=== PATIENT | male | born 1980 | race Caucasian/White ===

== ENCOUNTER 2016-09-04 06:50 | Emergency (ER) | payer BC ==
[2016-09-04 07:02] VITALS: BP 150/91; O2SAT 96
[2016-09-04] MEDS ORDERED: TORAdol 30 mg Injection IM ONE (07:15)
[2016-09-04] MEDS ORDERED: Norflex 60 MG/2 ML IM ONE (07:15)
[2016-09-04] MEDS ORDERED: TORAdol 30 mg Injection ONE (07:18)
[2016-09-04] MEDS ORDERED: Norflex 60 MG/2 ML ONE (07:18)
--- NOTE | 2016-09-04 07:21 | ERPHSYRPT ---
- History of Present Illness Time Seen by Provider: 09/04/16 07:05 Source: patient Patient Subjective Stated Complaint: REPORTS WITH CHRONIC LOWER BACK PAIN THAT IS WORSE THAN NORMAL, ONSET A FEW DAYS AGO AND GRADUALLY GETTING WORSE, RADIATING INTO THE HIP AND DOWN THE RIGHT LEG - STATES THAT HE WILL NOT BE ABLE TO SEE PAIN MANAGEMENT FOR A FEW MORE DAYS AND IS LONG OVERDUE FOR A "CAUDAL INJECTION" Triage Nursing Assessment: AMBULATORY TO TREATMENT AREA - WADDLING GAIT WITH POST-OP SHOE ON THE RIGHT FOOT. ALERT/ORIENTED - GRIMMACING AFFECT. SKIN FLUSHED/DRY - NO RASH - INFECTION OF THE RIGHT TOE WITH COPIOUS DRAINAGE, RECEIVING CUBICIN AND "ADVANSE" VIA PICC LINE. RESPS EASY - NON-LABORED. FSBS : 289 Physician History: CC: back pain Hx: 36 y/o male patient of Dr Parker. He has chronic back pain and has had injections and has seen pain specialists. Dr Guevara referred him to pain doctor in [place] and appt is next week. He has worsened pain in low back. He has no inciting injury. No fever or chills. No abd pain. Pain radiates down the right leg. He has DM but did not take his insulin last night. 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 He has no hx of IVIS. He is on cubicin for diabetic foot and is followed by podiatry and changes dressings daily- it is improving and he does not want it changed here. Back Pain Location: lumbar spine Back Pain Radiation: upper legs Severity of Pain-Max: severe Severity of Pain-Current: severe Allergies/Adverse Reactions: No Known Drug Allergies Allergy (Verified 09/04/16 06:54) Home Medications: Insulin Glargine [Lantus Insulin] 50 unit SQ QAM 03/03/13 [History] Insulin Lispro [Humalog] 1 unit SQ UD 03/03/13 [History] Metoprolol Tartrate 50 mg [Lopressor 50 MG] 50 mg PO BID 03/03/13 [History ] Pravastatin Sodium 40 mg PO DAILY 03/03/13 [History] Gabapentin 300 mg PO TID 08/31/13 [History] Lisinopril/Hydrochlorothiazide [Lisinopril-Hctz 20-12.5 mg Tab] 1 tab PO BID [History] Hx Tetanus, Diphtheria Vaccination/Date Given: Yes Hx Influenza Vaccination/Date Given: No Hx Pneumococcal Vaccination/Date Given: No Immunizations Up to Date: Yes - Review of Systems Constitutional: No Fever, No Chills Eyes: No Symptoms Ears, Nose, & Throat: No Symptoms Respiratory: No Cough Cardiac: No Chest Pain Abdominal/Gastrointestinal: No Abdominal Pain Musculoskeletal: Back Pain Skin: Other (diabetic foot ulcer) Neurological: No Focal Weakness, No Headache, No Parasthesia All Other Systems: Reviewed and Negative - Past Medical History Pertinent Past Medical History: Yes Neurological History: Peripheral Neuropathy ENT History: No Pertinent History Cardiac History: High Cholesterol, Hypertension Respiratory History: No Pertinent History Endocrine Medical History: Diabetes Type II Musculoskeletal History: Degenerative Disk Disease GI Medical History: No Pertinent History History: No Pertinent History Psycho-Social History: Depression Male Reproductive Disorders: No Pertinent History Other Medical History: MRSA in wound right foot in 04/2015 - Past Surgical History Past Surgical History: Yes Neuro Surgical History: No Pertinent History Cardiac: No Pertinent History Respiratory: No Pertinent History Gastrointestinal: No Pertinent History Genitourinary: No Pertinent History Musculoskeletal: Other Male Surgical History: No Pertinent History Other Surgical History: surgery on abcess and growth removed on foot RT, 2 toes amputated R foot. AXILLA--ABSCESS SURGERY, lumbar ANTONIA's - Social History Smoking Status: Never smoker Exposure to second hand smoke: No Drug Use: none Patient Lives Alone: No - Nursing Vital Signs Temperature: 98.3 F Pulse Rate: 90 Respiratory Rate: 16 Pain Intensity: 8 - Physical Exam General Appearance: alert, obese Eye Exam: PERRL/EOMI Ears, Nose, Throat Exam: moist mucous membranes Neck Exam: normal inspection, supple Respiratory Exam: normal breath sounds Cardiovascular Exam: regular rate/rhythm Gastrointestinal Exam: soft, No tenderness, No distention Back Exam: normal inspection, other (diffuse discomfort) Extremity Exam: other (dressing on foot) Neurologic Exam: alert, oriented x 3, cooperative, sensation nml, No motor deficits Skin Exam: warm, dry SpO2 Interpretation: normal SpO2: 96 Oxygen Delivery: Room Air - Course Nursing assessment & vital signs reviewed: Yes - Progress Progress Note: 09/04/16 07:22 Pt appears to have exacerbation of chronic pain. He has appt with pain specialist. He has seen Dr Hayward and Dr Guevara. He will try muscle relaxer Rx. Sugars preclude steroids. Explained chronic opioids need to come from his private physicians. Toradol and norflex given. Advised follow up. Counseled pt/family regarding: diagnosis, need for follow-up - Departure Time of Disposition: 07:23 Departure Disposition: Home Clinical Impression: Exacerbation of chronic back pain Condition: Stable Critical Care Time: No Referrals: ROWDY HAYWARD [Primary Care Provider] - Instructions: Low Back Pain Additional Instructions: BACK INJURY 1. May apply moist heat frequently for relief of pain. Take care not to burn the skin. Do not use heat for more than 30 minutes at a time. 2. Try to sleep on a firm bed, flat on your back. 3. If no improvement is noticed in 2-3 days, follow up with your family physician. 4. If you notice any numbness, tingling, weakness, or problems with your bowel or bladder, you should call your family physician or return to the emergency department. Rx norflex- no driving, next dose in 12 hours. Tylenol or ibuprofen as directed for pain. Call Dr Hayward for further back care. Prescriptions: Orphenadrine Citrate 100 mg [Norflex 100 MG Tablet] 1 tab PO BID #10 tab
[2016-09-04 07:54] VITALS: PULSE 85
== END 2016-09-04 07:54 | disposition home or self-care (01) ==
LOC: ED 06:50
DX: M54.9 Dorsalgia, unspecified (principal); G89.29 Other chronic pain
CPT/HCPCS: 96372; 99283; 99284; J1885; J2360